=== PATIENT | female | born 1955 | race African-American/Black ===

== ENCOUNTER 2017-05-08 07:46 | Emergency (ER) | payer BC ==
[~2017-05-08] VITALS: Ht 167.6 cm; Wt 108.0 kg
[2017-05-08 07:57] VITALS: BP 146/83
[2017-05-08] MEDS ORDERED: METF500T4 PO (08:01)
[2017-05-08] MEDS ORDERED: HYDR12.529 PO (08:01)
[2017-05-08] MEDS ORDERED: LISI-186 PO (08:01)
== END 2017-05-08 11:14 | disposition home or self-care (01) ==
LOC: ER 08:38
DX: S90.122A Contusion of left lesser toe(s) without damage to nail, initial encounter (principal); E11.9 Type 2 diabetes mellitus without complications; I10 Essential (primary) hypertension; Z87.891 Personal history of nicotine dependence; Z79.84 Long term (current) use of oral hypoglycemic drugs; W22.03XA Walked into furniture, initial encounter; Y93.89 Activity, other specified; Y92.89 Other specified places as the place of occurrence of the external cause; Y99.8 Other external cause status
CPT/HCPCS: 73630; 99284

== ENCOUNTER 2018-09-22 07:15 | Emergency (ER) | payer BC, OTHER ==
[~2018-09-22] VITALS: Ht 167.6 cm; Wt 109.0 kg
[~2018-09-22 07:15] MED LIST: HYDR12.529 PO; LISI-186 PO; METF-414 PO
[2018-09-22 08:25] VITALS: BP 177/88
== END 2018-09-22 08:35 | disposition home or self-care (01) ==
LOC: ER 07:15
DX: H10.021 Other mucopurulent conjunctivitis, right eye (principal); H01.00A Unspecified blepharitis right eye, upper and lower eyelids; E11.9 Type 2 diabetes mellitus without complications; I10 Essential (primary) hypertension
CPT/HCPCS: 99283

== ENCOUNTER → 2019-12-18 | Outpatient (CLI) | payer OTHER | END | disposition home or self-care (01) | LOC: MRI 10:07 | PROVIDERS: ATTEND Neurological Surgery | DX: M48.02 Spinal stenosis, cervical region (principal); M47.812 Spondylosis without myelopathy or radiculopathy, cervical region; M50.222 Other cervical disc displacement at C5-C6 level | CPT/HCPCS: 72141 ==

== ENCOUNTER 2021-12-14 18:50 | Inpatient (IN) | payer OTHER ==
[~2021-12-14] VITALS: Ht 162.6 cm; Wt 99.8 kg
[2021-12-15] VITALS (8 sets, daily range): BP systolic 114–163; BP diastolic 54–76
[2021-12-15 01:02] LABS: BASOPHILS % 0.6 % (0.0-2.0); EOSINOPHILS % 1.8 % (0.0-5.0); HEMATOCRIT. 36.7 % (36.0-48.0); HEMOGLOBIN. 12.2 g/dL (12.0-16.0); LYMPHOCYTES % 32.9 % (20.0-50.0); MEAN CORPUSCULAR HEMOGLOBIN 29.4 pg (28.0-32.0); MEAN CORPUSCULAR VOLUME 88.8 fL (81.0-99.0); MEAN PLATELET VOLUME 7.1 fl (7.4-10.4); MONOCYTES % 6.7 % (2.0-8.0); PLATELET 381 x1000/uL (130-400); RED BLOOD CELL COUNT 4.13 mill/uL (4.2-5.4); RED CELL DISTRIBUTION WIDTH 14.1 % (11.6-14.6)
[2021-12-15 01:03] LABS: CHLORIDE 113 mEq/L (98-107)
[2021-12-15] MEDS ORDERED: IOHEXOL-350 100 ML BOTTLE ONE (05:39)
[2021-12-15] MEDS ORDERED: DOCUSATE SODIUM 100MG CAPSULE PO PRN (06:15)
[2021-12-15] MEDS ORDERED: GUAIFENESIN 200MG/10ML SUGAR FREE UDC PO PRN (06:15)
[2021-12-15] MEDS ORDERED: TRAMADOL 50MG TABLET PO PRN (06:15)
[2021-12-15] MEDS ORDERED: ONDANSETRON HCL 4MG/2ML INJ IV PRN (06:15)
[2021-12-15] MEDS ORDERED: ACETAMINOPHEN 325MG TABLET PO PRN (06:15)
[2021-12-15] MEDS ORDERED: MAGNESIUM/ALUMINUM HYDROXIDE/SIMETHICONE 30ML UDC PO PRN (06:15)
[2021-12-15] MEDS ORDERED: HYDR12.54 PO (06:46)
[2021-12-15] MEDS ORDERED: LISI20TA31 PO (06:46)
[2021-12-15] MEDS ORDERED: DEXTROSE 50% WATER 50ML SYRINGE IV PRN (07:00)
[2021-12-15] MEDS: BLOOD SUGAR DIAGNOSTIC STRIP TEST SCH ×4 (07:11→20:48)
[2021-12-15] MEDS: INSULIN LISPRO 100 UNITS/ML SUBCUT SCH ×4 (07:11→20:50)
[2021-12-15] MEDS: LISINOPRIL 20MG TABLET PO SCH (09:25)
[2021-12-15] MEDS: ENOXAPARIN 30MG/0.3ML SYR SUBCUT SCH ×2 (09:25→20:48)
[2021-12-15] MEDS: ASPIRIN 81MG EC TABLET PO SCH (09:26)
[2021-12-15] MEDS ORDERED: INFLUENZA VACCINE 05/PF 0.5 ML SYRINGE IM ONE (10:00)
[2021-12-15] MEDS ORDERED: AMLODIPINE 5MG TABLET PO NR (11:30)
[2021-12-15] MEDS ORDERED: NALOXONE HCL 0.4MG/ML VIAL IV PRN (21:00)
[2021-12-15] MEDS ORDERED: ATORVASTATIN CALCIUM 10MG TABLET PO SCH (21:00)
[2021-12-15] MEDS: HYDROCODONE/ACETAMINOPHEN 5/325MG TABLET PO PRN (23:34)
[2021-12-16] VITALS: BP 168/81
[2021-12-16 04:00] VITALS: BP 111/67
[2021-12-16] MEDS: BLOOD SUGAR DIAGNOSTIC STRIP TEST SCH (06:28)
[2021-12-16] MEDS: INSULIN LISPRO 100 UNITS/ML SUBCUT SCH (07:15)
[2021-12-16 08:00] VITALS: BP 136/60
[2021-12-16 08:03] LABS: BASOPHILS % 0.8 % (0.0-2.0); EOSINOPHILS % 1.7 % (0.0-5.0); HEMATOCRIT. 33.2 % (36.0-48.0); HEMOGLOBIN. 11.4 g/dL (12.0-16.0); LYMPHOCYTES % 34.1 % (20.0-50.0); MEAN CORPUSCULAR HEMOGLOBIN 30.2 pg (28.0-32.0); MEAN CORPUSCULAR VOLUME 87.8 fL (81.0-99.0); MEAN PLATELET VOLUME 7.2 fl (7.4-10.4); MONOCYTES % 7.8 % (2.0-8.0); NEUTROPHILS % 55.6 % (40.0-76.0); PLATELET 302 x1000/uL (130-400); RED BLOOD CELL COUNT 3.78 mill/uL (4.2-5.4); RED CELL DISTRIBUTION WIDTH 14.1 % (11.6-14.6)
[2021-12-16] MEDS: LISINOPRIL 20MG TABLET PO SCH (08:03)
[2021-12-16] MEDS: ENOXAPARIN 30MG/0.3ML SYR SUBCUT SCH (08:03)
[2021-12-16] MEDS: HYDROCODONE/ACETAMINOPHEN 5/325MG TABLET PO PRN (08:03)
[2021-12-16] MEDS: ASPIRIN 81MG EC TABLET PO SCH (08:04)
[2021-12-16 08:45] LABS: CHLORIDE 111 mEq/L (98-107)
[2021-12-16] MEDS ORDERED: AMLODIPINE 5MG TABLET PO SCH (09:00)
[2021-12-16 09:07] LABS: HDL CHOLESTEROL 38 mg/dL (40-59); LDL CHOLESTEROL 94 mg/dL (5-100)
[2021-12-16 09:58] VITALS: BP 136/60
== END 2021-12-16 11:10 | disposition home or self-care (01) | DRG 313 ==
LOC: ER 18:50 → MICUSO 12-15 01:41 → 6WST 12-15 05:00
PROVIDERS: ADMIT Hospitalist; ATTEND Hospitalist
DX: R07.89 Other chest pain (principal); E11.9 Type 2 diabetes mellitus without complications; I10 Essential (primary) hypertension; E78.00 Pure hypercholesterolemia, unspecified; E78.5 Hyperlipidemia, unspecified; R00.1 Bradycardia, unspecified; F17.210 Nicotine dependence, cigarettes, uncomplicated; Z79.82 Long term (current) use of aspirin; Z82.3 Family history of stroke; Z79.899 Other long term (current) drug therapy; Z86.711 Personal history of pulmonary embolism; Z90.710 Acquired absence of both cervix and uterus
CPT/HCPCS: 36415; 71045; 71275; 80053; 80061; 82962; 83036; 83735; 83880; 84443; 84484; 85025; 90686; 93005; 93306; 93970; 99285; J1650; Q9967

== ENCOUNTER 2022-07-06 04:55 | Emergency (ER) | payer MEDICARE, OTHER ==
[~2022-07-06] VITALS: Ht 172.7 cm; Wt 102.0 kg
[~2022-07-06 04:55] MED LIST changes: -HYDR12.529 PO; +HYDR12.54 PO; -LISI-186 PO; +LISI20TA31 PO
[2022-07-06] MEDS ORDERED: ASPIRIN 81MG TABLET PO ONE (05:45)
[2022-07-06 06:08] LABS: BASOPHILS % 0.7 % (0.0-2.0); EOSINOPHILS % 1.8 % (0.0-5.0); HEMATOCRIT. 43.5 % (36.0-48.0); HEMOGLOBIN. 14.5 g/dL (12.0-16.0); LYMPHOCYTES % 31.3 % (20.0-50.0); MEAN CORPUSCULAR HEMOGLOBIN 29.5 pg (28.0-32.0); MEAN CORPUSCULAR VOLUME 88.9 fL (81.0-99.0); MEAN PLATELET VOLUME 7.3 fl (7.4-10.4); MONOCYTES % 9.6 % (2.0-8.0); NEUTROPHILS % 56.6 % (40.0-76.0); PLATELET 369 x1000/uL (130-400); RED BLOOD CELL COUNT 4.89 mill/uL (4.2-5.4); RED CELL DISTRIBUTION WIDTH 13.3 % (11.6-14.6)
[2022-07-06 06:24] LABS: CHLORIDE 105 mEq/L (98-107)
[2022-07-06 07:43] LABS: D-DIMER 2.56 mg/L FEU (<0.50); INR 1.1; PARTIAL THROMBOPLASTIN TIME 22.9 sec (23.4-31.0); PROTHROMBIN TIME 11.6 sec (9.6-11.0)
[2022-07-06] MEDS ORDERED: IOHEXOL-350 100 ML BOTTLE ONE (08:57)
[2022-07-06] MEDS ORDERED: POTASSIUM CHLORIDE 20MEQ TABLET SR PO ONE (09:30)
[2022-07-06 10:01] VITALS: BP 128/70
== END 2022-07-06 10:02 | disposition home or self-care (01) ==
LOC: ER 04:55
DX: R06.02 Shortness of breath (principal); E87.6 Hypokalemia; I10 Essential (primary) hypertension; E78.00 Pure hypercholesterolemia, unspecified; E11.9 Type 2 diabetes mellitus without complications; Z98.890 Other specified postprocedural states
CPT/HCPCS: 36415; 71045; 71275; 80053; 83880; 84484; 85025; 85379; 85610; 85730; 93005; 99285; Q9967

== ENCOUNTER 2023-06-30 01:26 | Emergency (ER) | payer OTHER ==
[~2023-06-30] VITALS: Ht 170.2 cm; Wt 82.0 kg
[2023-06-30 01:33] VITALS: BP 143/88; PULSE 72; RESP 18; TEMP 98.4; O2SAT 99
[2023-06-30 02:30] LABS: CHLORIDE 107 mEq/L (98-107); POTASSIUM 3.1 mEq/L (3.5-5.1); SODIUM 143 mEq/L (136-145)
[2023-06-30 02:31] LABS: CARBON DIOXIDE 33 mEq/L (21-32)
[2023-06-30 02:36] LABS: CREATININE 0.9 mg/dL (0.6-1.0); GLUCOSE 105 mg/dL (70-105); UREA NITROGEN BLOOD 23 mg/dL (9-23)
[2023-06-30 02:38] LABS: ALANINE AMINOTRANSFERASE 8 IU/L (10-49); ALBUMIN 4.1 g/dL (3.2-4.8); ASPARTATE AMINOTRANSFERASE 16 IU/L (<34); BILIRUBIN TOTAL 0.3 mg/dL (0.1-1.0)
[2023-06-30 02:39] LABS: PROTEIN TOTAL 6.7 g/dL (6.0-8.3); TROPONIN I HIGH SENSITIVITY < 4 ng/L (3.0-34)
[2023-06-30 03:00] LABS: BASOPHILS % 0.6 % (0.0-2.0); EOSINOPHILS % 4.2 % (0.0-5.0); HEMATOCRIT. 35.5 % (36.0-48.0); HEMOGLOBIN. 12.6 g/dL (12.0-16.0); LYMPHOCYTES % 41.1 % (20.0-50.0); MEAN CORPUSCULAR HEMOGLOBIN 30.5 pg (28.0-32.0); MEAN CORPUSCULAR HGB CONC 35.4 g/dL (31.0-37.0); MEAN CORPUSCULAR VOLUME 86.3 fL (81.0-99.0); MEAN PLATELET VOLUME 7.6 fl (7.4-10.4); MONOCYTES % 9.8 % (2.0-8.0); NEUTROPHILS % 44.3 % (40.0-76.0); PLATELET 388 x1000/uL (130-400); RED BLOOD CELL COUNT 4.12 mill/uL (4.2-5.4); RED CELL DISTRIBUTION WIDTH 13.6 % (11.6-14.6); WHITE BLOOD COUNT 7.6 x1000/uL (4.5-11.0)
== END 2023-06-30 05:02 | disposition home or self-care (01) ==
LOC: ER 01:26
DX: R06.02 Shortness of breath (principal)
CPT/HCPCS: 36415; 71045; 80053; 83880; 84484; 85025; 99285